=== PATIENT | female | born 1985 | race Caucasian/White ===

== ENCOUNTER 2018-01-23 12:23 | Emergency (ER) | payer SELFPAY ==
[2018-01-23] MEDS ORDERED: Ketorolac Tromethamine 60 MG/2 ML VIAL ONE ×3 (14:41→14:46)
[2018-01-23] MEDS ORDERED: Acetaminophen 500 MG TAB ONE ×2 (14:41→14:44)
== END 2018-01-23 15:09 | disposition home or self-care (01) ==
LOC: NAV ERS 12:23
DX: K02.9 Dental caries, unspecified (principal); F17.210 Nicotine dependence, cigarettes, uncomplicated
CPT/HCPCS: 96372; J1885

== ENCOUNTER 2018-10-15 18:49 | Emergency (ER) | payer SELFPAY ==
[2018-10-15] MEDS ORDERED: Ondansetron ODT 4 MG TAB ONE (19:04)
[2018-10-15] MEDS ORDERED: Ondansetron PF 4 MG/2 ML Vial ONE (19:34)
[2018-10-15] MEDS ORDERED: Sodium Chloride 0.9% 1,000 ML ONE (19:35)
[2018-10-15 19:42] LABS: BHCG - Serum Negative (NEGATIVE); Pregs Control Bar Appear? YES (CONTROL BAR)
[2018-10-15] MEDS ORDERED: Promethazine HCl 25 MG/ML VIAL ONE ×2 (19:50→21:08)
[2018-10-15 19:51] LABS: ALT (SGPT) 13 U/L (8-55); AST (SGOT) 19 U/L (5-34); Albumin 4.9 g/dL (3.5-5.0); Alkaline Phosphatase 52 U/L (40-150); Anion Gap 19 mmol/L (10-20); BUN (Urea Nitrogen) 20 mg/dL (7.0-18.7); Bilirubin, Total 0.6 mg/dL (0.2-1.2); Calc. Creatinine Clearance 0 mL/min (70-130); Calcium 10.3 mg/dL (7.8-10.44); Carbon Dioxide 21 mmol/L (22-29); Chloride 107 mmol/L (98-107); Estimated GFR-MDRD Greater than 90; Globulin 2.9 g/dL (2.4-3.5); Glucose 103 mg/dL (70-105); Potassium 3.5 mmol/L (3.5-5.1); Protein, Total 7.8 g/dL (6.0-8.3); Sodium 143 mmol/L (136-145)
[2018-10-15 19:54] LABS: Band 7 % (5-11); Eosinophils 1 % (0-10); Hemoglobin 15.7 g/dL (12.0-16.0); Lymphocytes 28 % (21-51); MDiff Complete? YES; Mean Corpuscular Hemoglobin 30.6 pg (27.0-31.0); Mean Platelet Volume 7.6 fL (7.4-10.4); Neutrophil 64 % (42-75); Platelet Count 155 thou/uL (130-400); Platelet Morphology Comment Appears Adequate; RBC Distribution Width 11.5 % (11.5-14.5); RBC Morphology Normal; Red Blood Cell (RBC) Count 5.13 mill/uL (4.20-5.40); White Blood Cell (WBC) Count 8.5 thou/uL (4.8-10.8)
[2018-10-15] MEDS ORDERED: Ketorolac Tromethamine 30 MG/ML VIAL ONE (20:05)
--- NOTE | 2018-10-15 21:05 | RAD ---
KUB AND UPRIGHT AND PA CHEST: 10/15/18 HISTORY: Abdominal pain, vomiting, diarrhea. The bowel gas pattern appears nonobstructive. No signs of free air. Postoperative changes of the abdo men are noted. Surgical chain type sutures in the left mid abdomen and what appear to be cholecystect leigha clips. PA CHEST: Heart size and mediastinum are within normal limits. The lungs appear clear of any infiltrative proce ss. IMPRESSION: No signs of obstruction. There are postoperative changes of the abdomen. No acute findings. No acute intrathoracic disease. POS: [facility]
[2018-10-15] MEDS ORDERED: Lorazepam 2 MG/ML VIAL ONE (22:10)
== END 2018-10-15 22:59 | disposition short-term general hospital (02) ==
LOC: NAV ERS 18:49
DX: E86.9 Volume depletion, unspecified (principal); R11.2 Nausea with vomiting, unspecified; F17.210 Nicotine dependence, cigarettes, uncomplicated
CPT/HCPCS: 36415; 74022; 80053; 84703; 85025; 87804; 96365; 96372; 96375; 96376; J0500; J1885; J2060; J2405; J2550; J7050; Q0162

== ENCOUNTER 2018-12-01 19:52 | Emergency (ER) | payer SELFPAY ==
[~2018-12-01 19:52] MED LIST: Iopamidol 300 61% 100 ML VIAL FS ONE
[2018-12-01] MEDS ORDERED: Sodium Chloride 0.9% 1,000 ML ONE (20:01)
[2018-12-01] MEDS ORDERED: Morphine 4 MG/ML VIAL ONE ×3 (20:01→21:38)
[2018-12-01] MEDS ORDERED: Ondansetron PF 4 MG/2 ML Vial ONE (20:01)
[2018-12-01 20:25] LABS: #Basophils 0.1 thou/uL (0.0-0.2); #Lymphocytes 1.4 thou/uL (1.20-3.40); #Monocytes 0.5 thou/uL (0.11-0.59); #Neutrophils 10.3 thou/uL (1.40-6.50); %Basophils 0.5 % (0.0-1.0); %Eosinophils 0.3 % (0.0-10.0); %Lymphocytes 11.7 % (21.0-51.0); %Monocytes 4.1 % (0.0-10.0); %Neutrophils 83.6 % (42.0-75.0); Hemoglobin 13.8 g/dL (12.0-16.0); Mean Corpuscular HGB CONC 32.6 g/dL (32.0-36.0); Mean Corpuscular Hemoglobin 29.7 pg (27.0-31.0); Mean Platelet Volume 8.2 fL (7.4-10.4); Platelet Count 247 thou/uL (130-400); Red Blood Cell (RBC) Count 4.65 mill/uL (4.20-5.40); White Blood Cell (WBC) Count 12.3 thou/uL (4.8-10.8)
[2018-12-01 20:33] LABS: BHCG - Serum Negative (NEGATIVE); Pregs Control Bar Appear? YES (CONTROL BAR)
[2018-12-01 20:39] LABS: ALT (SGPT) 18 U/L (8-55); AST (SGOT) 25 U/L (5-34); Albumin 4.9 g/dL (3.5-5.0); Alkaline Phosphatase 59 U/L (40-150); Anion Gap 13 mmol/L (10-20); BUN (Urea Nitrogen) 17 mg/dL (7.0-18.7); Bilirubin, Total 0.3 mg/dL (0.2-1.2); Calc. Creatinine Clearance 0 mL/min (70-130); Carbon Dioxide 26 mmol/L (22-29); Chloride 109 mmol/L (98-107); Estimated GFR-MDRD Greater than 90; Glucose 135 mg/dL (70-105); Lipase 20 U/L (8-78); Potassium 3.7 mmol/L (3.5-5.1); Protein, Total 7.9 g/dL (6.0-8.3); Sodium 144 mmol/L (136-145)
--- NOTE | 2018-12-01 21:29 | CT ---
FCT abdomen and pelvis with IV contrast. Oral contrast was not administered. INDICATIONS: Abdominal pain COMPARISON: CT abdomen 10/16/2018 FINDINGS: Lung bases are clear Liver, spleen, and pancreas appear unremarkable. Radiopaque suture along the gastric wall. Adrenal glands appear normal. Kidneys appear unremarkable. Collecting structures and urinary bladder appear unremarkable. Small lef t renal cystic lesion is stable. Small bowel loops are normal caliber. Radiopaque suture seen within several loops of small bowel. Appendix not definitely identified. Lack of enteric contrast and intra-abdominal fat limits evaluatio n of the bowel. Aorta is normal caliber. No evidence of retroperitoneal or mesenteric adenopathy. Uterus and adnexa appear unremarkable. No free fluid in the pelvis. Subcutaneous tissues, abdominal wall, and muscular structures appear unremarkable. Osseous structures appear unremarkable. IMPRESSION: No acute findings
[2018-12-01 21:56] LABS: Bilirubin Negative (Negative); Blood, Urine Moderate (Negative); Clarity Clear (Clear); Glucose, Urine (Dipstick) Negative (Negative); Leukocyte Negative (Negative); Nitrite Negative (Negative); Protein, Urine (Dipstick) Negative (Neg-Trace)
[2018-12-01 21:57] LABS: Bacteria/HPF None Seen HPF (None Seen); RBC/HPF 21-50 HPF (0-3); WBC/HPF None Seen HPF (0-3)
[2018-12-01 22:27] LABS: Amphetamine Not Detected (NotDetected); Barbiturates Screen Not Detected (NotDetected); Benzodiazepine Screen Not Detected (NotDetected); Cocaine Metabolite Screen Not Detected (NotDetected); Medtox Control Line Valid? VALID (VALID); Methadone Not Detected (NotDetected); Methamphetamine Not Detected (NotDetected); Opiate Screen Detected (NotDetected); Oxycodone Screen Not Detected (NotDetected); Phencyclidine (PCP) Not Detected (NotDetected); THC/Cannabinoid Screen Detected (NotDetected); Tricyclic Screen Not Detected (NotDetected)
== END 2018-12-01 22:03 | disposition short-term general hospital (02) ==
LOC: NAV ERS 19:52
DX: R10.31 Right lower quadrant pain (principal); Z87.891 Personal history of nicotine dependence
CPT/HCPCS: 36415; 74177; 80053; 80306; 81003; 81015; 82150; 83605; 83690; 84703; 85025; 96374; 96375; 96376; J2270; J2405; J7050; Q9967

== ENCOUNTER 2018-12-07 15:14 | Emergency (ER) | payer SELFPAY ==
[~2018-12-07 15:14] MED LIST changes: -Iopamidol 300 61% 100 ML VIAL FS ONE; +Iopamidol 370 76% 100 ML VIAL ONE
[2018-12-07] MEDS ORDERED: Morphine 4 MG/ML VIAL ONE ×2 (15:44→18:56)
[2018-12-07] MEDS ORDERED: Ondansetron PF 4 MG/2 ML Vial ONE ×2 (15:44→17:11)
[2018-12-07 16:23] LABS: #Basophils 0.1 thou/uL (0.0-0.2); #Eosinphils 0.1 thou/uL (0.0-0.7); #Lymphocytes 1.6 thou/uL (1.20-3.40); #Monocytes 0.5 thou/uL (0.11-0.59); #Neutrophils 5.5 thou/uL (1.40-6.50); %Basophils 1.3 % (0.0-1.0); %Eosinophils 0.8 % (0.0-10.0); %Lymphocytes 20.7 % (21.0-51.0); %Monocytes 6.9 % (0.0-10.0); %Neutrophils 70.3 % (42.0-75.0); Hemoglobin 13.4 g/dL (12.0-16.0); Mean Corpuscular HGB CONC 32.8 g/dL (32.0-36.0); Mean Corpuscular Volume 91.5 fL (78.0-98.0); Mean Platelet Volume 7.7 fL (7.4-10.4); Platelet Count 254 thou/uL (130-400); RBC Distribution Width 12.4 % (11.5-14.5); Red Blood Cell (RBC) Count 4.47 mill/uL (4.20-5.40); White Blood Cell (WBC) Count 7.8 thou/uL (4.8-10.8)
[2018-12-07 16:33] LABS: ALT (SGPT) 19 U/L (8-55); AST (SGOT) 20 U/L (5-34); Albumin 4.2 g/dL (3.5-5.0); Alkaline Phosphatase 53 U/L (40-150); Anion Gap 13 mmol/L (10-20); BUN (Urea Nitrogen) 12 mg/dL (7.0-18.7); Bilirubin, Total 0.4 mg/dL (0.2-1.2); Calc. Creatinine Clearance 0 mL/min (70-130); Calcium 9.3 mg/dL (7.8-10.44); Carbon Dioxide 27 mmol/L (22-29); Chloride 103 mmol/L (98-107); Estimated GFR-MDRD 85; Globulin 2.4 g/dL (2.4-3.5); Glucose 101 mg/dL (70-105); Lipase 14 U/L (8-78); Potassium 3.6 mmol/L (3.5-5.1); Protein, Total 6.6 g/dL (6.0-8.3); Sodium 139 mmol/L (136-145)
[2018-12-07 17:03] LABS: Pregnancy Test - Urine (BHCG) Negative (Negative); Pregu Control Background? CLEAR/WHITE (CLR/WHITE); Pregu Control Bar Appear? YES (CONTROL BAR); Specific Gravity 1.018 (1.002-1.036)
[2018-12-07 17:13] LABS: Amphetamine Not Detected (NotDetected); Barbiturates Screen Not Detected (NotDetected); Benzodiazepine Screen Not Detected (NotDetected); Cocaine Metabolite Screen Not Detected (NotDetected); Medtox Control Line Valid? VALID (VALID); Methadone Not Detected (NotDetected); Methamphetamine Not Detected (NotDetected); Opiate Screen Detected (NotDetected); Oxycodone Screen Not Detected (NotDetected); Phencyclidine (PCP) Not Detected (NotDetected); THC/Cannabinoid Screen Detected (NotDetected); Tricyclic Screen Not Detected (NotDetected)
[2018-12-07] MEDS ORDERED: Pantoprazole 40 MG VIAL ONE (17:28)
[2018-12-07] MEDS ORDERED: Sodium Chloride 0.9% 100 ML ONE (17:30)
--- NOTE | 2018-12-07 17:43 | CT ---
FEXAM: Abdomen and pelvic CT scan with contrast: Enteric contrast was not administered which precludes reliable assessment of the bowel. HISTORY: Abdominal pain COMPARISON: 12/01/2018 FINDINGS: The visualized lung bases are clear. Liver: Intrahepatic biliary air related to prior surgery is again seen Gallbladder:Surgically absent with associated pneumobilia Pancreas:Stable, without acute inflammation Spleen:Unremarkable. Adrenal glands:Unremarkable. Kidneys:No renal calculus or acute obstruction.Small left renal hypodensity, inferomedially is sta ble, too small to further characterize Bowel: There is abnormal wall thickening of the mid to distal stomach as well as bowel wall prominenc e within loops of small bowel. Given absence of administration of enteric contrast, this is limited i n assessment. Urinary Bladder: The urinary bladder is unremarkable. Adenopathy:No adenopathy within the abdomen or pelvis. Free Air: No free air. Ascites: No ascites. Osseous structures: No acute osseous abnormalities. IMPRESSION: Abnormal wall thickening of the stomach. There are also loops of unopacified small bowel with wall pr ominence. Recommend clinical correlation to exclude evidence of gastroenteritis either infectious or inflammatory. Findings are incompletely assessed without the administration of enteric contrast.
[2018-12-07] MEDS ORDERED: Mag-Al Plus 1200 MG/1200 MG/120 MG/30 ML UDCUP ONE ×2 (18:56→18:58)
[2018-12-07] MEDS ORDERED: Lidocaine Viscous Sol 2% 15 ml UD Cup ONE ×2 (18:56→18:58)
[2018-12-07] MEDS ORDERED: Promethazine HCl 25 MG/ML VIAL ONE (18:57)
[2018-12-07] MEDS ORDERED: Haloperidol Lactate 5 MG/ML VIAL ONE (20:15)
== END 2018-12-07 20:40 | disposition short-term general hospital (02) ==
LOC: NAV ERS 15:14
DX: K29.00 Acute gastritis without bleeding (principal); Z87.891 Personal history of nicotine dependence
CPT/HCPCS: 36415; 74177; 80053; 80306; 81025; 82150; 83690; 85025; 96372; 96374; 96375; 96376; A4353; C9113; J1630; J2270; J2405; J2550; J7050; Q9967